=== PATIENT | female | born 1935 | race Caucasian/White ===

== ENCOUNTER → 2017-01-08 | Outpatient (CLI) | payer OTHER, BC ==
--- NOTE | 2017-01-08 17:54 | DX ---
DEXA Bone Mineral Densitometry Clinical Indications: Postmenopausal, history of left wrist fracture, history of falling, follow-up osteoporosis, right hip replacement Comparison: September 05, 2013 Technique: Bone Mineral Densitometry (BMD) by Dual Energy X-Ray Absorptiometry (DEXA) was performed utilizing the [employer] scanner. The lumbar spine was evaluated in the AP projection. The bilat eral hips and forearm were evaluated in the AP projection. Vertebral fracture assessment was also pe rformed. AP Lumbar Spine: The L1 and L2 vertebral bodies were evaluated. L3 and L4 are excluded due to degen erative sclerosis. BMD: 0.928 gm/cm2 T-score: -2.0 SD Z-score: -0.4 SD No significant change in L1-L2 AP Left Hip: Total BMD: 0.773 gm/cm2 T-score: -1.9 SD Z-score: 0 SD No significant change. AP Right Forearm, 12/02: BMD: 0.550 gm/cm2 T-score: -3.7 SD Z-score: -0.9 SD No significant change. Vertebral Fracture Assessment: No significant fracture deformity. No prevertebral aortic calcificati on, significant marginal bone spurring, facet arthrosis, or intrinsic vertebral body sclerosis that would effect the accuracy of the lumbar spine BMD measurement. Conclusion: Considering the lowest measured site, the patient remains osteoporotic and at increased risk for additional fractures. DEXA Bone Mineral Densitometry The ten year FRAX risk for any major osteoporotic fracture , which excludes the risk for a wrist frac ture, is 17.6% and for a hip fracture is 8.3%. Since the forearm is the lowest measured site, it woul d be worthwhile to exclude hyperparathyroidism. According to the recommendations of the [employer], this patient would be a good candidate for bone strengthening pharmacologic inte rvention. Consider excluding secondary metabolic causes of bone loss (reported to be present in as many as 30% of patients with normal Z scores). Basic laboratory evaluation might include blood chemistries (calci um, phosphorus, alkaline phosphatase, liver function tests, creatinine, total protein), complete bloo d count, serum 25-OH- vitamin D3 level, 24-hour urine calcium, serum TSH and serum PTH. Targeted l aboratory testing based on individual patient circumstances might include serum electrophoresis (SPEP or UPEP), anti-tissue transglutaminase antibody levels (celiac disease) , serum bone specific alkal ine phosphatase, bone turnover markers (urine, serum) or fibroblast growth factor 23 (FGF 23)(evaluat e for unexplained osteomalacia). If secondary causes are excluded, then consider initiating treatment with a bisphosphonate (such as F osamax, Actonel or Boniva). If the patient is unable to use an oral bisphosphonate, another agent suc h as IV bisphosphonates (Boniva or Reclast), teriparatide (Forteo), a selective estrogen receptor mo dulator (Evista) or Denosumab ( anti RANKL monoclonal antibody) might be considered. If antiresorptive therapy is initiated and if clinically indicated, consider obtaining a baseline and 3 month followup bone resorption marker (NTX, CTX, TRAP5b or Pyridinoline, deoxypyridinoline) to mon itor the therapeutic effect. Supplementing an insufficient diet to achieve total intakes of 1500 mg calcium and 800 International Units of vitamin D daily should be considered. Osteoporosis prevention and treatment begins by modify ing risk factors. The patient should be encouraged to participate in a regular exercise program that includes weightbearing and muscle strengthening regimens, as is clinically appropriate. Recommend follow-up DEXA in one year to assess the efficacy of pharmacologic intervention and/or yun ection of appropriate secondary cause.
== END ==
LOC: FIMAGING 10:12
PROVIDERS: ATTEND Internal Medicine
DX: Z13.820 Encounter for screening for osteoporosis (principal); M81.0 Age-related osteoporosis without current pathological fracture; Z78.0 Asymptomatic menopausal state; Z96.641 Presence of right artificial hip joint

== ENCOUNTER → 2017-05-14 | Outpatient (CLI) | payer OTHER, BC | LOC: BMCIMAGING 08:15 | PROVIDERS: ATTEND Internal Medicine | DX: Z12.31 Encounter for screening mammogram for malignant neoplasm of breast (principal); Z85.3 Personal history of malignant neoplasm of breast | CPT/HCPCS: G0202 ==

== ENCOUNTER → 2017-11-17 | Outpatient (CLI) | payer OTHER, BC | LOC: BMCIMAGING 13:35 | PROVIDERS: ATTEND Internal Medicine | DX: J40 Bronchitis, not specified as acute or chronic (principal) ==

== ENCOUNTER → 2017-12-11 | Outpatient (CLI) | payer OTHER, BC | LOC: BMCIMAGING 14:26 | PROVIDERS: ATTEND Internal Medicine | DX: I82.432 Acute embolism and thrombosis of left popliteal vein (principal); I82.412 Acute embolism and thrombosis of left femoral vein; I82.532 Chronic embolism and thrombosis of left popliteal vein; I82.512 Chronic embolism and thrombosis of left femoral vein ==

== ENCOUNTER → 2018-01-05 | Outpatient (CLI) | payer OTHER, BC | LOC: BMCIMAGING 08:02 | PROVIDERS: ATTEND Physician Assistant | DX: M17.11 Unilateral primary osteoarthritis, right knee (principal); M25.861 Other specified joint disorders, right knee ==

== ENCOUNTER → 2018-05-24 | Outpatient (CLI) | payer OTHER, BC | LOC: BMCIMAGING 12:41 | PROVIDERS: ATTEND Internal Medicine | DX: Z12.31 Encounter for screening mammogram for malignant neoplasm of breast (principal) ==

== ENCOUNTER → 2019-05-26 | Outpatient (CLI) | payer OTHER, BC | LOC: BMCIMAGING 08:44 ==